=== PATIENT | female | born 1975 | race Caucasian/White ===

== ENCOUNTER → 2018-04-21 | Outpatient (CLI) | payer BC ==
[2006-01-14 07:30] VITALS: TEMP 97.5
[~2018-04-21] MED LIST: PRENATAL VITAMI1 TA5 PO
== END ==
LOC: MC.RAD 08:25
DX: Z12.31 Encounter for screening mammogram for malignant neoplasm of breast (principal)

== ENCOUNTER → 2021-09-04 | Outpatient (CLI) | payer BC ==
[2006-01-14 07:30] VITALS: TEMP 97.5
== END ==
LOC: MC.RAD 08:00
DX: Z12.31 Encounter for screening mammogram for malignant neoplasm of breast (principal)